=== PATIENT | male | born 1975 | race Caucasian/White ===

== ENCOUNTER → 2021-05-05 | Outpatient (CLI) | payer OTHER ==
--- NOTE | 2021-05-05 16:03 | CT ---
EXAMINATION TYPE: CT abdomen pelvis wo/w con DATE OF EXAM: 05/05/2021 COMPARISON: None INDICATION: Enlarged lymph nodes of groin area DLP: 660.0 mGycm, Automated exposure control for dose reduction was used. CONTRAST: 100 mL of Isovue 300. Study performed with Oral Contrast TECHNIQUE: Axial images were obtained from above the diaphragm to the pubic rami in the axial plane a t 5 mm thick sections. Reconstructed images are reviewed on the computer in the coronal plane. FINDINGS: Limited CT sections are obtained the lung bases. The lung bases are clear. CT ABDOMEN: Liver: Normal Spleen: Normal Pancreas: Normal Adrenal glands: The adrenal glands are normal. Gallbladder: Normal Kidneys: No masses are evident. No hydronephrosis is present. No cysts are present. Delayed images were obtained through the kidneys, which remain unremarkable. Aorta: Vascular calcification is within the aorta. Inferior vena cava: Normal. CT PELVIS: Several prominent lymph nodes are present in the coronal plane images. These appear less p rominent in the axial plane. No suspicious iliac chain or inguinal adenopathy is evident. No suspicio us abdominal adenopathy. Loops of bowel within the abdomen and pelvis are normal. There are some loops of bowel lacking or al contrast during completely distended limiting their evaluation. Appendix: The appendix as visualized is normal. Urinary bladder: Normal. Genitourinary structures: Some prostate calcifications present Osseous structures: No suspicious lytic or sclerotic lesions are evident. Vacuum disc phenomenon is p resent L5-S1. IMPRESSIONS: 1. There are some somewhat prominent lymph nodes within the inguinal regions. Consider PET CT for ad ditional evaluation. Additional suspicious adenopathy is not evident
== END | disposition home or self-care (01) ==
LOC: RADCTMAIN 07:04
PROVIDERS: ATTEND Family Medicine
DX: R59.0 Localized enlarged lymph nodes (principal)
CPT/HCPCS: 74178; Q9967

== ENCOUNTER 2024-02-10 20:52 | Emergency (ER) | payer BC, OTHER ==
--- NOTE | 2024-02-10 21:04 | ED ---
General Adult HPI - General Source: patient Mode of arrival: ambulatory Limitations: no limitations <Anjelica Small - Last Filed: 02/10/24 21:04> - History of Present Illness -: hour(s) Location: chest Radiation: non-radiation Quality: aching Consistency: constant Improves with: none Worsens with: movement, other (Palpation, deep breath) Associated Symptoms: denies other symptoms <Todd Van - Last Filed: 02/12/24 10:43> - General Stated complaint: JP Time Seen by Provider: 02/10/24 21:04 - History of Present Illness Initial comments: Quick note: 48-year-old male presenting with chief complaint of rib pain. Patient is currently at [facility]. States that he was playing volleyball when he dove for the ball landing on his right side. He is now having some rib pain near the right upper side. Hurts with deep breaths, coughing, or sneezing. (Anjelica Small) Patient is 48-year-old man with chest pain that is reproducible, that came on playing volleyball after low mechanism blunt trauma to chest. No dyspnea or other concerning symptoms. (Todd Van) - Related Data Previous Rx's Medication Instructions Recorded Albuterol Inhaler [Ventolin Hfa 2 puff INHALATION Q4HR PRN #8 gm 02/11/24 Inhaler] Allergies Allergy/AdvReac Type Severity Reaction Status Date / Time Penicillins Allergy Anaphylaxis Verified 02/10/24 21:51 Review of Systems ROS Other: All systems not noted in ROS Statement are negative. <Anjelica Small - Last Filed: 02/10/24 21:04> ROS Other: All systems not noted in ROS Statement are negative. Constitutional: Denies: fever, chills Respiratory: Denies: cough, dyspnea Cardiovascular: Reports: as per HPI, chest pain. Denies: palpitations, orthopnea, edema, syncope Gastrointestinal: Denies: abdominal pain, nausea, vomiting, diarrhea Genitourinary: Denies: dysuria, hematuria Musculoskeletal: Denies: back pain Skin: Denies: rash Neurological: Denies: headache, weakness, numbness <Todd Van - Last Filed: 02/12/24 10:43> ROS Statement: Those systems with pertinent positive or pertinent negative responses have been documented in the HPI. General Exam <Anjelica Small - Last Filed: 02/10/24 21:04> Limitations: no limitations General appearance: alert Head exam: Present: atraumatic, normocephalic Eye exam: Present: normal appearance Respiratory exam: Present: wheezes, chest wall tenderness. Absent: respiratory distress, rales, rhonchi, stridor, accessory muscle use Cardiovascular Exam: Present: regular rate, normal rhythm, normal heart sounds. Absent: systolic murmur, diastolic murmur, rubs, gallop GI/Abdominal exam: Present: soft. Absent: tenderness Skin exam: Present: warm, dry, intact, normal color. Absent: rash <Todd Van - Last Filed: 02/12/24 10:43> - General Exam Comments Initial Comments: Visual Physical Exam Vital signs reviewed General: Well-appearing, nontoxic, no acute distress. Head: Normocephalic, atraumatic Eyes: PERRLA, EOMI ENT: Airway patent Chest: Nonlabored breathing Skin: No visual rash, normal skin tone Neuro: Alert and oriented 3 Musculoskeletal: No gross abnormalities (Anjelica Small) Course Vital Signs 02/10/24 21:51 Temperature 98.4 F Pulse Rate 73 Respiratory 20 Rate Blood Pressure 132/82 O2 Sat by Pulse 97 Oximetry Medical Decision Making <Anjelica Small - Last Filed: 02/10/24 21:04> <Todd Van - Last Filed: 02/12/24 10:43> - Medical Decision Making I performed the quick note portion of this visit, electronically signed Anjelica Small PA-C (Anjelica Small) The patient had chest x-ray with right rib series that I interpreted as negative for acute fracture, pneumothorax, infiltrate. Was pt. sent in by a medical professional or institution (, PA, FITNESS MANAGEMENT DIRECTOR, urgent care, hospital, or senior living...) When possible be specific @ -[Yes, the patient is sent from [facility] to have further evaluation related to chest pain Did you speak to anyone other than the patient for history (EMS, parent, family, police, friend...)? What history was obtained from this source @ -[No] Did you review nursing and triage notes (agree or disagree)? Why? @ -[I reviewed and agree with nursing and triage notes] Were old charts reviewed (outside hosp., previous admission, EMS record, old EKG, old radiological studies, urgent care reports/EKG's, senior living records)? Report findings @ -[No old charts were reviewed] Differential Diagnosis (chest pain, altered mental status, abdominal pain women, abdominal pain men, vaginal bleeding, weakness, fever, dyspnea, syncope, headache, dizziness, GI bleed, back pain, seizure, CVA, palpatations, mental health, musculoskeletal)? @ -[Differential Chest Pain: Stable Angina, Unstable Angina, STEMI, NSTEMI Aortic Dissection, Pneumothorax, Musculoskeletal, Esophageal Spasm GERD, Cholecystitis, Pancreatitis, Zoster, this is not meant to be an all-inclusive list. EKG interpreted by me (3pts min.). @ -[As above] X-rays interpreted by me (1pt min.). @ -[I interpreted as above CT interpreted by me (1pt min.). @ -[None done] U/S interpreted by me (1pt. min.). @ -[None done] What testing was considered but not performed or refused? (CT, X-rays, U/S, labs)? Why? @ -[None] What meds were considered but not given or refused? Why? @ -[None] Did you discuss the management of the patient with other professionals (professionals i.e. , PA, FITNESS MANAGEMENT DIRECTOR, lab, RT, psych nurse, social studies teacher, truck leasing manager, te acher, ground defence officer, therapeutic case manager)? Give summary @ -[No] Was smoking cessation discussed for >3mins.? @ -[No] Was critical care preformed (if so, how long)? @ -[No] Were there social determinants of health that impacted care today? How? (Homelessness, low income, unemployed, alcoholism, drug addiction, transportation, low edu. Level, literacy, decrease access to med. care, retirement, rehab)? @ -[No] Was there de-escalation of care discussed even if they declined (Discuss DNR or withdrawal of care, Hospice)? DNR status @ -[No] What co-morbidities impacted this encounter? (DM, HTN, Smoking, COPD, CAD, Cancer, CVA, ARF, Chemo, Hep., AIDS, mental health diagnosis, sleep apnea, morbid obesity)? @ -[None] Was patient admitted / discharged? Hospital course, mention meds given and route, prescriptions, significant lab abnormalities, going to OR and other pertinent info. @ -[Patient stable for discharge with further care on an as-needed basis, discussed the further care as well as return parameters. Undiagnosed new problem with uncertain prognosis? @ -[No] Drug Therapy requiring intensive monitoring for toxicity (Heparin, Nitro, Insulin, Cardizem)? @ -[No] Were any procedures done? @ -[No] Diagnosis/symptom? @ -[Chest wall pain Acute, or Chronic, or Acute on Chronic? @ -[Acute Uncomplicated (without systemic symptoms) or Complicated (systemic symptoms)? @ -[Uncomplicated Side effects of treatment? @ -[No] Exacerbation, Progression, or Severe Exacerbation? @ -[No] Poses a threat to life or bodily function? How? (Chest pain, [place], [place], pneumonia, PE, COPD, DKA, ARF, appy, cholecystitis, CVA, Diverticulitis, Homicidal, Suicidal, threat to staff... and all critical care pts) @ -[No] (Todd Van) Disposition <Anjelica Small - Last Filed: 02/10/24 21:04> Is patient prescribed a controlled substance at d/c from ED?: No <Todd Van - Last Filed: 02/12/24 10:43> Clinical Impression: Asthma, Chest wall injury Disposition: HOME SELF-CARE Condition: Good Instructions (If sedation given, give patient instructions): Asthma (ED), Chest Wall Pain (ED) Prescriptions: Albuterol Inhaler [Ventolin Hfa Inhaler] 2 puff INHALATION Q4HR PRN #8 gm PRN Reason: Wheezing Referrals: None,Stated [Primary Care Provider] - 1-2 days
[2024-02-10 21:56] VITALS: BP 132/82; PULSE 73; RESP 20; TEMP 98.4
--- NOTE | 2024-02-11 00:38 | XR ---
EXAM: XR Right Ribs, 2 Views CLINICAL HISTORY: ITS.REASON XR Reason: injury TECHNIQUE: Frontal and oblique views of the right ribs. COMPARISON: No relevant prior studies available. FINDINGS: Lungs: Unremarkable as visualized. No consolidation. Pleural space: Unremarkable. No pneumothorax. Bones/joints: Unremarkable. No acute fracture. IMPRESSION: Normal right rib x-rays.
== END 2024-02-11 02:02 | disposition home or self-care (01) ==
LOC: EC 20:52
DX: S29.9XXA Unspecified injury of thorax, initial encounter (principal); J45.909 Unspecified asthma, uncomplicated; Z88.0 Allergy status to penicillin; Y93.68 Activity, volleyball (beach) (court)
CPT/HCPCS: 99284